=== PATIENT | female | born 1945 | race Caucasian/White ===

== ENCOUNTER 2018-04-03 09:27 | Emergency (ER) | payer OTHER ==
[~2018-04-03] VITALS: Ht 160 cm; Wt 71.2 kg
--- OUTSIDE RECORDS SUMMARY | 2018-04-03 09:30 | XMS REPORT | Continuity of Care Document ---
Author Author [facility] Interface Address Unknown Phone Unavailable Problems Problem Status Onset Date Classification Date Reported Comments Source ROUTINE Active 02/17/2017 [facility] SCREENING LAST MMG W- Active 01/10/2016 [facility] SCREENING/ OSTEPENIA Active 12/21/2014 [facility] Vitamin D deficiency<sup>22</sup> Active 12/01/2014 Problem 10/22/2017 Data migrated from [employer] on 12/24/14. [facility] Contact dermatitis<sup>13, 14</sup> Active 08/30/2014 Problem 10/22/2017 Data migrated from [employer] on 11/09/14. [facility] SCREENING MAMMO Active 08/30/2013 [facility] Acute sinusitis<sup>7, 8</sup> Resolved 01/05/2013 Problem 10/22/2017 Data migrated from [employer] on 11/18/14. [facility] Hip pain<sup>15</sup> Active 12/10/2012 Problem 10/22/2017 Data migrated from [employer] on 10/01/14. [facility] Knee pain<sup>16</sup> Active 12/10/2012 Problem 10/22/2017 Data migrated from [employer] on 10/01/14. [facility] Pain in lower limb<sup>20</sup> Active 12/10/2012 Problem 10/22/2017 Data migrated from [employer] on 10/01/14. [facility] Acute otitis media<sup>5, 6</sup> Resolved 08/11/2012 Problem 10/22/2017 Data migrated from [employer] on 11/18/14. [facility] Allergic rhinitis<sup>11</sup> Active 08/11/2012 Problem 10/22/2017 Data migrated from [employer] on 10/01/14. [facility] Acute upper respiratory infection<sup>9, 10</sup> Resolved 06/07/2011 Problem 10/22/2017 Data migrated from [employer] on 11/18/14. [facility] Benign essential hypertension<sup>12</sup> Active 05/14/2010 Problem 10/22/2017 Data migrated from [employer] on 10/01/14. [facility] Mixed hyperlipidemia<sup>18</sup> Active 05/14/2010 Problem 10/22/2017 Data migrated from [employer] on 10/01/14. [facility] Osteopenia<sup>19</sup> Active 05/14/2010 Problem 10/22/2017 Data migrated from [employer] on 10/01/14. [facility] Acute bronchitis<sup>1, 2</sup> Resolved 03/22/2008 Problem 10/22/2017 Data migrated from [employer] on 11/18/14. [facility] Acute maxillary sinusitis<sup>3, 4</sup> Resolved 03/22/2008 Problem 10/22/2017 Data migrated from [employer] on 11/18/14. [facility] Mammography abnormal<sup>17</sup> Active 08/10/2007 Problem 10/22/2017 Data migrated from [employer] on 10/01/14. [facility] SCREEN MAMMOGRAM NEC Active [facility] Datatype(DG1.4)- Active [facility] ENCNTR SCREEN MAMMOGRAM FOR MALIGNANT NE Active [facility] Medications Medication Details Route Status Patient Instructions Ordering Provider Order Date Source Atenolol 25 MG Oral Tablet 25 mg=1 tab, PO, Daily, # 90 tab, 1 Refill(s), Pharmacy: [facility] 354 Active 07/16/2017 [facility] Allergies, Adverse Reactions, Alerts Substance Category Reaction Severity Reaction type Status Date Reported Comments Source penicillins<sup>1</sup> Assertion Drug allergy Active 04/02/2007 Data migrated from [email or web address] on 12/01/14. Originally documented as PCN. HIVES [facility] NKFA Assertion Drug allergy Active [facility] Immunizations Immunization Date Given Site Status Last Updated Comments Source Results Order Name Results Value Reference Range Date Interpretation Comments Source Breast Mammo Scrn JOSÉ LUIS w jairon incl CAD MA Breast Mammo Scrn JOSÉ LUIS w jairon incl CAD MA BILATERAL DIGITAL SCREENING MAMMOGRAM 3D/2D WITH CAD: 03/11/2017 CLINICAL: /Rotuine. Current study was evaluated with a Computer Aided Detection (CAD) system. COMPARISON:Comparison is made to exams dated: 01/30/2016 mammogram, 12/30/2014 mammogram, 09/07/2013 mammogram, 09/21/2012 mammogram, and 09/01/2012 mammogram - [facility]. TECHNIQUE: Digital Breast Tomosynthesis was performed and utilized for Interpretation. [employer] Sciences[employer] Version 1.3 was utilized for computer aided detection. There are scattered fibroglandular densities in both breasts. FINDINGS: There are benign appearing vascular calcifications and calcifications in the right breast. There also are benign appearing vascular calcifications, calcifications, and densities in the left breast. No significant masses, calcifications, or other findings are seen in either breast. There has been no significant interval change. IMPRESSION: BENIGN RECOMMENDATION:There is no mammographic evidence of malignancy. A 1 year screening mammogram is recommended.(03/12/2018) This exam was interpreted at [id number] for [facility]. Roman womack/penrad:03/11/2017 15:56:01 Color Mixer(s): Monika Calvo [facility] letter sent: BI-RADS 1/2 Mammogram BI-RADS: 2 Benign 03/11/2017 - - Read by: Roman Tang MD Dictated Date/time: 03/11/17 15:56 Electronically Signed by: Roman Tang MD 03/11/17 15:56 FINAL REPORT [facility] Digital Mammo Screen José Luis MA w jairon Digital Mammo Screen José Luis MA w jairon - DIGITAL MAMMO SCREEN JOSÉ LUIS MA W JAIRON BILATERAL DIGITAL SCREENING MAMMOGRAM 3D/2D WITH CAD: 01/30/2016 CLINICAL: Screen. 2D digital mammographic images and 3D digital tomosynthesis images were obtained in the CC and MLO projections. Current study was evaluated with a Computer Aided Detection (CAD) system. Comparison is made to exams dated: 12/30/2014 mammogram, 09/07/2013 mammogram, 09/21/2012 mammogram, 09/01/2012 mammogram, 07/23/2010 mammogram and 08/10/2009 mammogram - [facility]. There are scattered fibroglandular densities in both breasts. There are benign appearing vascular calcifications and calcifications in both breasts. There also are benign appearing densities in the left breast. No significant masses, calcifications, or other findings are seen in either breast. There has been no significant interval change. IMPRESSION: BENIGN There is no mammographic evidence of malignancy. A 1 year screening mammogram is recommended. Roman womack/penrad:01/30/2016 15:02:53 Color Mixer: Juliet Woodard, [facility] This exam was dictated and interpreted by [id number] for [facility]. letter sent: Normal exam Mammogram BI-RADS: 2 Benign 01/30/2016 - - Read by: Roman Tang MD Dictated Date/time: 01/30/16 15:02 Electronically Signed by: Roman Tang MD 01/30/16 15:02 FINAL REPORT [facility] Bone Density Scan Bone Density Scan DEXA BONE DENSITY TECHNIQUE: DEXA bone density evaluation was performed on a Hologic scanner. This represents the patient's initial evaluation at this facility. FINDINGS: Total lumbar spine bone density is 0.912 g/sq cm, 1.2 standard deviations below normal (T score -1.2). This represents osteopenia. Total hip bone density is 0.996 g/sq cm, 0.4 standard deviations above normal (T score 0.4). Bone mineral density of the left femoral neck is 0.727 g/sq cm, 1.1 standard deviations below normal (T score -1.1). This represents osteopenia. IMPRESSION: Bone mineral density is consistent with osteopenia and increased fracture risk. FOR YOUR INFORMATION: The World Health Organization has established that OSTEOPOROSIS occurs at -2.5 or more standard deviations (SD) below peak bone mass (T-score on the Hologic report). OSTEOPENIA (low bone mass) occurs between -1.0 to -2.5 standard deviations below peak bone mass. SL: 16 12/30/2014 - - Read by: Zac Torre MD Dictated Date/time: 12/30/14 11:45 Electronically Signed by: Zac Torre MD 12/30/14 11:46 FINAL REPORT [facility] Digital Mammo Screening José Luis MA Digital Mammo Screening José Luis MA - DIGITAL MAMMO SCREENING JOSÉ LUIS MA BILATERAL DIGITAL SCREENING MAMMOGRAM WITH CAD: 12/30/2014 CLINICAL: Routine. Current study was evaluated with a Computer Aided Detection (CAD) system. Comparison is made to exams dated: 09/07/2013 mammogram, 09/21/2012 mammogram, 09/01/2012 mammogram, 07/23/2010 mammogram, 08/10/2009 mammogram and 07/26/2009 mammogram - [facility]. There are scattered fibroglandular densities in both breasts. There are benign appearing vascular calcifications and calcifications in both breasts. There also are benign appearing densities in the left breast. No significant masses, calcifications, or other findings are seen in either breast. There has been no significant interval change. IMPRESSION: BENIGN There is no mammographic evidence of malignancy. A 1 year screening mammogram is recommended. Roman womack/francisco:01/02/2015 07:53:35 Color Mixer: Naima Yip, [facility] This exam was dictated and interpreted by [id number] for [facility]. letter sent: Normal exam Mammogram BI-RADS: 2 Benign 12/30/2014 - - Read by: Roman Tang MD Dictated Date/time: 01/02/15 07:53 Electronically Signed by: Roman Tang MD 01/02/15 07:53 FINAL REPORT [facility] Digital Mammo Screening José Luis MA Digital Mammo Screening José Luis MA - DIGITAL MAMMO SCREENING JOSÉ LUIS MA BILATERAL DIGITAL SCREENING MAMMOGRAM WITH CAD: 09/07/2013 CLINICAL: Other Screening Mammogram. Current study was evaluated with a Computer Aided Detection (CAD) system. Comparison is made to exams dated: 09/21/2012 mammogram, 09/01/2012 mammogram, 07/23/2010 mammogram, 08/10/2009 mammogram, 07/26/2009 mammogram and 07/22/2008 mammogram - [facility]. There are scattered fibroglandular densities in both breasts. Multiple benign appearing densities are noted bilaterally which are not significantly changed in size possibly representing cysts. There are benign appearing vascular calcifications and calcifications in both breasts. No significant masses, calcifications, or other findings are seen in either breast. There has been no significant interval change. IMPRESSION: BENIGN Multiple benign appearing bilateral densities are not significantly changed possibly representing cysts. Ultrasound can be performed for confirmation and to exclude underlying pathology. There is no mammographic evidence of malignancy. A screening mammogram in one year is recommended. Roman womack/francisco:09/08/2013 07:50:53 Color Mixer: Naima Yip, [facility] This exam was dictated and interpreted by [id number] for [facility]. letter sent: Normal exam Mammogram BI-RADS: 2 Benign 09/07/2013 - - Read by: Roman Tang MD Dictated Date/time: 09/08/13 07:50 Electronically Signed by: Roman Tang MD 09/08/13 07:50 FINAL REPORT [facility] Vital Signs Vital Sign Value Date Comments Source BMI Calculated 27.95 07/16/2017 [facility] Height 160.02 cm 07/16/2017 [facility] Heart Rate 78 07/16/2017 [facility] Temperature Oral (F) 98.2 F 07/16/2017 [facility] Weight 71.563 07/16/2017 [facility] Systolic (mm Hg) 160 07/16/2017 [facility] Diastolic (mm Hg) 74 07/16/2017 [facility] Encounters Location Location Details Encounter Type Encounter Number Reason For Visit Attending Provider ADM Date DC Date Status Source [facility] Outpatient [id number] Leeann KangDante 09/07/2013 09/08/2013 [facility] Outpatient [id number] EDY QIU 12/01/2014 [facility] Outpatient [id number] Edy Qiu 12/30/2014 12/31/2014 [facility] Outpatient [id number] EDY QIU 12/28/2015 [facility] Outpatient [id number] Edy Qiu 01/30/2016 01/31/2016 [facility] Outpatient [id number] LIGIA GORDON 10/02/2016 [facility] Outpatient [id number] JOSAFAT LACI- SCHMITZ 12/26/2016 [facility] Outpatient [id number] Josafat Laci-Schmitz 03/11/2017 03/12/2017 [facility] Outpatient [id number] JOSAFAT LACI- SCHMITZ 07/16/2017 [facility] Outpatient [id number] Josafat Laci-Schmitz 07/16/2017 07/17/2017 [facility] Outpatient [id number] [facility]O [facility] 01/15/2018 Active [facility] Outpatient [id number] THIAGO [facility] 02/18/2018 Active [facility] Procedures Procedure Code Date Perfomer Comments Source
--- OUTSIDE RECORDS SUMMARY | 2018-04-03 09:30 | XMS REPORT | Summary of Care ---
Author Organization Unknown Address Unknown Phone Unavailable Encounter HQ Encntr_jailyn(DARREN) [id number] Date(s): 09/07/13 - 09/07/13 [facility] [address] Discharge Disposition: Home Physician Attending: Leeann Chino MD Physician_Referring: Leeann Chino MD Reason for Visit SCREENING MAMMO Problem List No data available for this section Allergies, Adverse Reactions, Alerts Substance Reaction Severity Status NKDA Active Medications No data available for this section Medications Administered During Your Visit No data available for this section Immunizations No data available for this section
--- OUTSIDE RECORDS SUMMARY | 2018-04-03 09:30 | XMS REPORT | Summary of Care ---
Author Author [facility] Organization [facility] Address Unknown Phone Unavailable Encounter JESSE Barrios(DARREN) [id number] Date(s): 12/30/14 - 12/30/14 [facility] [address] [place] [address]- [phone] Discharge Disposition: Home Attending Physician: Frantz Qiu MD Referring Physician: Frantz Qiu MD Vital Signs No data available for this section Problem List Condition Effective Dates Status Health Status Informant Acute bronchitis1, 2 03/22/08 Resolved Acute maxillary 03/22/08 Resolved sinusitis3, 4 Acute otitis media5, 08/11/12 Resolved 6 Acute sinusitis7, 8 01/05/13 Resolved Acute upper 06/07/11 Resolved respiratory infection9, 10 Allergic avwysywj06 08/11/12 Active Benign essential 05/14/10 Active tudnwrashrwp20 Contact 08/30/14 Active jzluoacgat93, 14 Hip pain15 12/10/12 Active Knee pain16 12/10/12 Active Mammography 08/10/07 Active eiiofpnn56 Mixed 05/14/10 Active obcgllikmvadxi95 Kvlniiceme74 05/14/10 Active Pain in lower limb20 12/10/12 Active Screening for 12/01/14 Active malignant neoplasm of qsiuuj64 Vitamin D 12/01/14 Active djpgarszpf99 1Data migrated from [employer] on 11/19/14. 2Data migrated from [employer] on 11/18/14. 3Data migrated from [employer] on 11/19/14. 4Data migrated from [employer] on 11/18/14. 5Data migrated from [employer] on 11/19/14. 6Data migrated from [employer] on 11/18/14. 7Data migrated from [employer] on 11/19/14. 8Data migrated from [employer] on 11/18/14. 9Data migrated from [employer] on 11/19/14. 10Data migrated from [employer] on 11/18/14. 11Data migrated from [employer] on 10/01/14. 12Data migrated from [employer] on 10/01/14. 13Data migrated from [employer] on 11/09/14. 14Data migrated from [employer] on 11/09/14. 15Data migrated from [employer] on 10/01/14. 16Data migrated from [employer] on 10/01/14. 17Data migrated from [employer] on 10/01/14. 18Data migrated from [employer] on 10/01/14. 19Data migrated from [employer] on 10/01/14. 20Data migrated from [employer] on 10/01/14. 21Data migrated from [employer] on 12/24/14. 22Data migrated from [employer] on 12/24/14. Allergies, Adverse Reactions, Alerts Substance Reaction Severity Status NKDA Active penicillins1 Active 1Data migrated from [employer] on 12/01/14. Originally documented as PCN. HIVES Medications No data available for this section Results No data available for this section Immunizations No data available for this section Procedures No data available for this section Social History No data available for this section Assessment and Plan No data available for this section
--- OUTSIDE RECORDS SUMMARY | 2018-04-03 09:30 | XMS REPORT | Summary of Care ---
Author Author [facility] Organization [facility] Address Unknown Phone Unavailable Encounter JESSE Barrios(DARREN) [id number] Date(s): 01/30/16 - 01/30/16 [facility] [address] [place] [address]- Discharge Disposition: Home or Self Care Attending Physician: Frantz Qiu MD Referring Physician: Frantz Qiu MD Vital Signs No data available for this section Problem List Condition Effective Dates Status Health Status Informant Acute bronchitis1, 2 03/22/08 Resolved Acute maxillary 03/22/08 Resolved sinusitis3, 4 Acute otitis media5, 08/11/12 Resolved 6 Acute sinusitis7, 8 01/05/13 Resolved Acute upper 06/07/11 Resolved respiratory infection9, 10 Allergic fcmlmxac12 08/11/12 Active Benign essential 05/14/10 Active azwdmuorvrfc26 Contact 08/30/14 Active urpxducjff91, 14 Hip pain15 12/10/12 Active Knee pain16 12/10/12 Active Mammography 08/10/07 Active ctrqbwoa84 Mixed 05/14/10 Active cyipkmqxaoesli59 Taafkuighd74 05/14/10 Active Pain in lower limb20 12/10/12 Active Screening for 12/01/14 Active malignant neoplasm of korwvs11 Vitamin D 12/01/14 Active paqbgsvgkp61 1Data migrated from [employer] on 11/19/14. [...] data available for this section Social History Social History Type Response Smoking Status Never smoker; Exposure to Tobacco Smoke None; Cigarette Smoking Last 365 Days No; Reg Smoking Cessation Counseling No Assessment and Plan No data available for this section
--- OUTSIDE RECORDS SUMMARY | 2018-04-03 09:30 | XMS REPORT | Summary of Care ---
Author Author [facility] Organization [facility] Address Unknown Phone Unavailable Encounter JESSE Barrios(DARREN) [id number] Date(s): 07/16/17 - 07/16/17 [place] [address] [facility], [address] [place] [address]- [phone] Discharge Disposition: Home or Self Care Attending Physician: Precious Ba MD Vital Signs Most recent to 1 oldest [Reference Range]: Height 160.02 cm (07/16/17 2:09 PM) Temperature Oral 98.2 DegF [96.4-99.1 DegF] (07/16/17 2:09 PM) Blood Pressure 160/74 mmHg [90-140/60-90 mmHg] *HI* (07/16/17 2:09 PM) Peripheral Pulse 78 bpm Rate [60-100 bpm] (07/16/17 2:09 PM) Weight 71.563 kg (07/16/17 2:09 PM) Body Mass Index 27.95 m2 (07/16/17 2:09 PM) Problem List Condition Effective Dates Status Health Status Informant Acute bronchitis1, 2 03/22/08 Resolved Acute maxillary 03/22/08 Resolved sinusitis3, 4 Acute otitis media5, 08/11/12 Resolved 6 Acute sinusitis7, 8 01/05/13 Resolved Acute upper 06/07/11 Resolved respiratory infection9, 10 Allergic ufcjhyut48 08/11/12 Active Benign essential 05/14/10 Active ljlzatqtjdra11 Contact 08/30/14 Active fwinswjxjl33, 14 Hip pain15 12/10/12 Active Knee pain16 12/10/12 Active Mammography 08/10/07 Active xjfnavbg82 Mixed 05/14/10 Active ywwrusbsnpmqjc72 Jukzmtixff79 05/14/10 Active Pain in lower limb20 12/10/12 Active Screening for 12/01/14 Active malignant neoplasm of Vitamin D 12/01/14 Active ettnqnpaym45 1Data migrated from [employer] on 11/19/14. [...] Adverse Reactions, Alerts Substance Reaction Severity Status penicillins1 Active NKFA Active 1Data migrated from [employer] on 12/01/14. Originally documented as PCN. HIVES Medications atenolol 25 mg oral tablet 25 mg=1 tab, PO, Daily, # 90 tab, 1 Refill(s), Pharmacy: [facility] [address] Start Date: 07/16/17 Stop Date: 01/12/18 Status: Ordered Results No data available for this section Immunizations No data available for this section Procedures No data available for this section Social History Social History Type Response Smoking Status Never smoker; Ready to change: No; Concerns about tobacco use in household: No; Exposure to Tobacco Smoke None; Cigarette Smoking Last 365 Days No; Reg Smoking Cessation Counseling No entered on: 07/16/17 Assessment and Plan No data available for this section
--- OUTSIDE RECORDS SUMMARY | 2018-04-03 09:30 | XMS REPORT | Summary of Care ---
Author Author [facility] Organization [facility] Address Unknown Phone Unavailable Encounter JESSE Barrios(DARREN) [id number] Date(s): 03/11/17 - 03/11/17 [facility] [address] [place] [address]- [phone] Discharge Disposition: Home or Self Care Attending Physician: Precious Ba MD Referring Physician: Precious Ba MD Vital Signs No data available for this section Problem List Condition Effective Dates Status Health Status Informant Acute bronchitis1, 2 03/22/08 Resolved Acute maxillary 03/22/08 Resolved sinusitis3, 4 Acute otitis media5, 08/11/12 Resolved 6 Acute sinusitis7, 8 01/05/13 Resolved Acute upper 06/07/11 Resolved respiratory infection9, 10 Allergic ddfoegkt41 08/11/12 Active Benign essential 05/14/10 Active hkxomgxpdnlg26 Contact 08/30/14 Active cjbztauxvn35, 14 Hip pain15 12/10/12 Active Knee pain16 12/10/12 Active Mammography 08/10/07 Active cvqolqae79 Mixed 05/14/10 Active micwvfkrfrdbzx59 Wpmihramrk78 05/14/10 Active Pain in lower limb20 12/10/12 Active Screening for 12/01/14 Active malignant neoplasm of dpkvke93 Vitamin D 12/01/14 Active hczuftyqlu87 1Data migrated from [employer] on 11/19/14. [...] Adverse Reactions, Alerts Substance Reaction Severity Status NKFA Active penicillins1 Active 1Data migrated from GE [...]
--- NOTE | 2018-04-03 10:18 | Diagnostic Imaging Report ---
PROCEDURE:CXR 2 VIEW - HOPD COMPARISON:None. INDICATIONS:cough congestion FINDINGS:The lungs are well-inflated. Mild biapical pleural-parenchymal scar. Calcified granuloma in the left midlung. Mild prominence of the pulmonary interstitium. No focal airspace consolidation, pleural effusion, or pneumothorax. Tortuosity of the thoracic aorta with atherosclerotic calcification. Normal heart size. No overt pulmonary edema. No acute osseous abnormality. CONCLUSION: Mild prominence of the pulmonary interstitium may indicate age-related fibrotic changes, though atypical pneumonia is an additional consideration in the setting of cough and congestion. Dictated by: Joni Nunez M.D. on 04/03/2018 at 10:28 Electronically approved by: Joni Nunez M.D. on 04/03/2018 at 10:28
== END 2018-04-03 10:33 | disposition home or self-care (01) ==
LOC: FSED 09:27
DX: R50.9 Fever, unspecified (principal); R05 Cough; J18.9 Pneumonia, unspecified organism; I10 Essential (primary) hypertension
CPT/HCPCS: 71046; 87400; 99284

== ENCOUNTER → 2021-03-06 | Day surgery (SDC) | payer OTHER ==
[2021-03-05 09:28] LABS: BASOPHILS # (AUTO) 0.1 (0.0-0.1); BASOPHILS % 1.3 % (0.0-1.0); EOSINOPHILS # (AUTO) 0.2 (0.0-0.4); HEMATOCRIT 42.4 % (34.2-44.1); HEMOGLOBIN 14.3 g/dL (12.0-16.0); LYMPHOCYTES # (AUTO) 1.7 (1.0-3.2); LYMPHOCYTES % 25.6 % (18.0-39.1); MEAN CORPUSCULAR HEMOGLOBIN 30.2 pg (28-32); MEAN CORPUSCULAR HGB CONC 33.7 g/dL (31-35); MEAN CORPUSCULAR VOLUME 89.6 fL (81-99); MONOCYTES # (AUTO) 0.6 (0.2-0.8); MONOCYTES % 8.6 % (4.4-11.3); NEUTROPHILS # (AUTO) 4.1 (2.1-6.9); NEUTROPHILS % 61.1 % (38.7-80.0); PLATELET COUNT 199 x10e3/uL (140-360); RED BLOOD COUNT 4.73 x10e6/uL (3.6-5.1); RED CELL DISTRIBUTION WIDTH 12.2 % (11.7-14.4)
[~2021-03-06] MED LIST: ATENOLOL50 MG PO; KRILL OIL500 MG PO; LOSARTAN POTAS100 MG PO; OR PHACO EYE KIT ONE; PREOP PHACO EYE KIT ONE; VITAMIN D350 MCG PO
[2021-03-06 13:45] VITALS: BP 146/74
== END | disposition home or self-care (01) ==
LOC: OR 11:27
PROVIDERS: ATTEND Ophthalmology
DX: H25.12 Age-related nuclear cataract, left eye (principal); I10 Essential (primary) hypertension; Z01.812 Encounter for preprocedural laboratory examination; Z20.822 Contact with and (suspected) exposure to COVID-19
CPT/HCPCS: 36415; 66984; 85025; U0002

== ENCOUNTER → 2021-03-20 | Day surgery (SDC) | payer OTHER ==
[~2021-03-20] MED LIST changes: +MIDAZOLAM HCL 2 MG/2 ML VIAL ONE
[2021-03-20 13:30] VITALS: BP 98/64
== END | disposition home or self-care (01) ==
LOC: OR 11:54
PROVIDERS: ATTEND Ophthalmology
DX: H25.11 Age-related nuclear cataract, right eye (principal); I10 Essential (primary) hypertension; E78.5 Hyperlipidemia, unspecified; R01.1 Cardiac murmur, unspecified; I44.0 Atrioventricular block, first degree; M19.90 Unspecified osteoarthritis, unspecified site; Z88.0 Allergy status to penicillin; Z01.812 Encounter for preprocedural laboratory examination; Z20.822 Contact with and (suspected) exposure to COVID-19; Z79.899 Other long term (current) drug therapy
CPT/HCPCS: 66984; J2250; U0002; V2788